=== PATIENT | female | born 1970 | race Caucasian/White ===

== ENCOUNTER 2016-06-07 18:24 | Outpatient (CLI) | payer BC, OTHER | END 2016-06-07 18:25 | disposition home or self-care (01) | DX: J20.9 Acute bronchitis, unspecified (principal); R91.8 Other nonspecific abnormal finding of lung field ==

== ENCOUNTER 2016-06-28 12:51 | Emergency (ER) | payer OTHER ==
[2016-06-28] MEDS ORDERED: SODIUM CHLORIDE 0.9% 1,000 ML IV ONE (13:19)
[2016-06-28] MEDS ORDERED: ONDANSETRON 4 MG/2 ML VIAL IVP STA (13:45)
[2016-06-28] MEDS ORDERED: diphenhydrAMINE INJ 50 MG/ML VIAL IVP STA (13:45)
[2016-06-28] MEDS ORDERED: PROCHLORPERAZINE 10 MG/2 ML VIAL IVP STA (13:45)
[2016-06-28] MEDS ORDERED: MAGNESIUM SULFATE 2 GRAM 50 ML IV ONE ×2 (13:45→13:53)
[2016-06-28] MEDS ORDERED: diphenhydrAMINE INJ 50 MG/ML VIAL ONE (13:52)
[2016-06-28] MEDS ORDERED: ONDANSETRON 4 MG/2 ML VIAL ONE (13:53)
[2016-06-28] MEDS ORDERED: PROCHLORPERAZINE 10 MG/2 ML VIAL ONE (13:53)
== END 2016-06-28 15:05 | disposition home or self-care (01) ==
DX: R51 Headache (principal); I10 Essential (primary) hypertension; E78.5 Hyperlipidemia, unspecified; J45.909 Unspecified asthma, uncomplicated

== ENCOUNTER 2016-07-04 14:19 | Outpatient (CLI) | payer OTHER | END 2016-07-04 14:20 | disposition home or self-care (01) | DX: Z12.31 Encounter for screening mammogram for malignant neoplasm of breast (principal) ==

== ENCOUNTER 2017-02-07 06:48 | Outpatient (CLI) | payer OTHER | END 2017-02-07 06:49 | disposition home or self-care (01) | LOC: LAB.R 06:48 | PROVIDERS: ATTEND Physician Assistant Medical | DX: R30.0 Dysuria (principal) | CPT/HCPCS: 87086 ==